=== PATIENT | male | born 1985 | race Two or more races ===

== ENCOUNTER 2017-05-28 02:26 | Emergency (ER) | payer BC ==
[2017-05-28 03:24] LABS: INFLUENZA A PATIENT POSITIVE (NEGATIVE); INFLUENZA B PATIENT NEGATIVE (NEGATIVE); OBC FLU VALID
[2017-05-28] MEDS: OSELTAMIVIR 75 MG CAPSULE PO ×2 (03:39)
[2017-05-28] MEDS: ONDANSETRON ODT 4 MG TAB.RAPDIS. PO ×2 (03:39)
[2017-05-28] MEDS: ACETAMINOPHEN 325 MG TABLET. PO ×2 (03:39)
== END 2017-05-28 03:47 | disposition home or self-care (01) ==
LOC: ER 02:26
DX: J09.X2 Influenza due to identified novel influenza A virus with other respiratory manifestations (principal)
CPT/HCPCS: 71046; 87804; 87804-59; 99285-25; Q0162